=== PATIENT | female | born 1990 | race Caucasian/White ===

== ENCOUNTER 2018-11-04 07:13 | Outpatient (CLI) | payer OTHER | END 2018-11-04 23:59 | disposition home or self-care (01) | LOC: CFH 07:13 | PROVIDERS: ATTEND Obstetrics & Gynecology | DX: K41.90 Unilateral femoral hernia, without obstruction or gangrene, not specified as recurrent (principal); J45.909 Unspecified asthma, uncomplicated | CPT/HCPCS: 76705 ==

== ENCOUNTER 2018-12-24 02:00 | Inpatient (IN) | payer OTHER ==
[~2018-12-24] VITALS: Ht 170.2 cm; Wt 67.7 kg
[2018-12-24] MEDS ORDERED: D5%-LACTATED RINGERS 1,000 ML IV SCH (02:21)
[2018-12-24] MEDS ORDERED: OXYTOCIN 30U/ 0.9% NaCL 500ML 500 ML IV ONE (02:21)
[2018-12-24] MEDS ORDERED: FENTANYL PF 100 MCG/2ML IV PRN (02:30)
[2018-12-24] MEDS ORDERED: SODIUM CHLORIDE FLUSH 10ML SYR IVF PRN (02:30)
[2018-12-24] MEDS ORDERED: TERBUTALINE 1 MG/ML, 1ML IVPush PRN (02:30)
[2018-12-24] MEDS ORDERED: ONDANSETRON 2MG/ML, 2ML IVPush PRN (02:30)
[2018-12-24] MEDS ORDERED: FENTANYL PF 100 MCG/2ML IVPush PRN (02:30)
[2018-12-24] MEDS ORDERED: CALCIUM CARBONATE 500 MG TAB.CHEW PO PRN ×2 (02:30→10:30)
[2018-12-24] MEDS ORDERED: PLEASE ENTER ALLERGIES MC SCH (02:30)
[2018-12-24] MEDS ORDERED: FENTANYL/BUPIV./NS/PF 250 ML EPIDCONT SCH ×2 (02:31→03:12)
[2018-12-24] MEDS ORDERED: NEWBORN KIT ONE (02:32)
[2018-12-24] MEDS ORDERED: FENTANYL PF 100 MCG/2ML ONE (02:44)
[2018-12-24 02:47] LABS: BASOPHILS # (AUTO) 0.06 x10^3/uL (0-0.1); BASOPHILS % (AUTO) 1 % (0-1); EOSINOPHILS # (AUTO) 0.01 x10^3/uL (0-0.4); EOSINOPHILS % (AUTO) 0 % (1-7); LYMPHOCYTES # (AUTO) 2.78 x10^3/uL (1-3.4); LYMPHOCYTES % (AUTO) 25 % (22-44); MD NO; MEAN CORPUSCULAR HEMOGLOBIN 33.5 pg (27.0-34.8); MEAN CORPUSCULAR HGB CONC 34.1 g/dL (32.4-35.8); MEAN CORPUSCULAR VOLUME 98.3 fL (80-100); MEAN PLATELET VOLUME 9.5 fL (7.4-10.4); MONOCYTES % (AUTO) 6 % (2-9); NEUTROPHILS # (AUTO) 7.45 x10^3/uL (1.8-6.8); NEUTROPHILS % (AUTO) 68 % (42-75); PLATELET COUNT 149 x10^3/uL (130-400); RED BLOOD COUNT 4.09 x10^6/uL (3.82-5.3); RED CELL DISTRIBUTION WIDTH 12.2 % (9.6-15.2)
[2018-12-24] MEDS ORDERED: ONDANSETRON 2MG/ML, 2ML ONE (02:47)
[2018-12-24] MEDS: LACTATED RINGERS 1,000 ML IV SCH (02:54)
[2018-12-24] MEDS ORDERED: FENTANYL/BUPIV./NS/PF 0 ML EPIDCONT ONE (03:02)
[2018-12-24] MEDS ORDERED: LACTATED RINGERS 1,000 ML IV SCH (03:12)
[2018-12-24] MEDS ORDERED: LACTATED RINGERS 1,000 ML IVBOLUS PRN (03:30)
[2018-12-24] MEDS ORDERED: EPHEDRINE 50 MG/ML, 1ML IVPush PRN (03:30)
[2018-12-24] MEDS ORDERED: LIDOCAINE 1%, 20ML ONE (07:35)
[2018-12-24] MEDS ORDERED: OXYTOCIN 30U/ 0.9% NaCL 500ML 500 ML ONE (07:35)
[2018-12-24] MEDS: OXYTOCIN 30U/ 0.9% NaCL 500ML 500 ML IV SCH ×2 (10:11→20:11)
[2018-12-24] MEDS ORDERED: METHYLERGONOVINE 0.2 MG/ML IM PRN (10:30)
[2018-12-24] MEDS ORDERED: CARBOPROST TROMETHAMINE 250 MCG/ML, 1ML IM PRN (10:30)
[2018-12-24] MEDS ORDERED: MISOPROSTOL 200 MCG TABLET PR PRN (10:30)
[2018-12-24] MEDS ORDERED: MAGNESIUM HYDROXIDE 8%, 30ML UDC PO PRN (10:30)
[2018-12-24] MEDS ORDERED: ACETAMINOPHEN 325 MG TABLET PO PRN (10:30)
[2018-12-24] MEDS ORDERED: HYDROcodone/APAP 5/325 TABLET PO PRN ×2 (10:30)
[2018-12-24] MEDS ORDERED: ONDANSETRON 2MG/ML, 2ML IV PRN (10:30)
[2018-12-24] MEDS ORDERED: IBUPROFEN 600 MG TABLET ONE (10:42)
[2018-12-24 12:15] VITALS: BP 116/62
[2018-12-24 16:00] VITALS: BP 129/76
[2018-12-24] MEDS: IBUPROFEN 600 MG TABLET PO PRN (16:31)
[2018-12-24 18:11] LABS: BASOPHILS # (AUTO) 0.04 x10^3/uL (0-0.1); BASOPHILS % (AUTO) 0 % (0-1); EOSINOPHILS # (AUTO) 0.01 x10^3/uL (0-0.4); EOSINOPHILS % (AUTO) 0 % (1-7); LYMPHOCYTES # (AUTO) 2.02 x10^3/uL (1-3.4); LYMPHOCYTES % (AUTO) 16 % (22-44); MD NO; MEAN CORPUSCULAR HEMOGLOBIN 33.7 pg (27.0-34.8); MEAN CORPUSCULAR HGB CONC 33.8 g/dL (32.4-35.8); MEAN CORPUSCULAR VOLUME 99.7 fL (80-100); MEAN PLATELET VOLUME 9.6 fL (7.4-10.4); MONOCYTES # (AUTO) 0.76 x10^3/uL (0.2-0.8); MONOCYTES % (AUTO) 6 % (2-9); NEUTROPHILS # (AUTO) 10.01 x10^3/uL (1.8-6.8); NEUTROPHILS % (AUTO) 78 % (42-75); PLATELET COUNT 116 x10^3/uL (130-400); RED BLOOD COUNT 3.77 x10^6/uL (3.82-5.3); RED CELL DISTRIBUTION WIDTH 12.3 % (9.6-15.2)
[2018-12-24 20:10] VITALS: BP 136/79
[2018-12-24] MEDS: DOCUSATE 100 MG CAPSULE PO PRN (20:18)
[2018-12-25] MEDS: IBUPROFEN 600 MG TABLET PO PRN ×2 (00:28→08:29)
[2018-12-25 00:35] VITALS: BP 138/89
[2018-12-25 04:30] VITALS: BP 121/73
[2018-12-25] MEDS: OXYTOCIN 30U/ 0.9% NaCL 500ML 500 ML IV SCH (06:11)
[2018-12-25] MEDS: DOCUSATE 100 MG CAPSULE PO PRN (08:29)
[2018-12-25 09:00] VITALS: BP 138/84
[2018-12-25] MEDS ORDERED: PRENATAL VIT/IRON/FA 1 EACH TABLET PO SCH (09:00)
== END 2018-12-25 12:26 | disposition home or self-care (01) | DRG 807 ==
LOC: LDOP 02:00 → LDIP 02:13 → 2NW 12:15
PROVIDERS: ADMIT Obstetrics & Gynecology; ATTEND Obstetrics & Gynecology
PROC: 10E0XZZ Delivery of Products of Conception, External Approach (ICD-10-PCS; principal; 2018-12-24)
PROC: 0KQM0ZZ Repair Perineum Muscle, Open Approach (ICD-10-PCS; 2018-12-24)
PROC: 3E0R3BZ Introduction of Anesthetic Agent into Spinal Canal, Percutaneous Approach (ICD-10-PCS; 2018-12-24)
PROC: 00HU33Z Insertion of Infusion Device into Spinal Canal, Percutaneous Approach (ICD-10-PCS; 2018-12-24)
DX: O99.52 Diseases of the respiratory system complicating childbirth (principal); Z37.0 Single live birth; O70.1 Second degree perineal laceration during delivery; Z3A.41 41 weeks gestation of pregnancy; J45.909 Unspecified asthma, uncomplicated; Z88.1 Allergy status to other antibiotic agents
CPT/HCPCS: 36415; J3490; 85025; 86850; 86900; G0378; J2405; J3010; J7120